=== PATIENT | female | born 1970 | race Caucasian/White ===

== ENCOUNTER → 2019-04-26 | Outpatient (CLI) | payer OTHER ==
--- NOTE | 2019-04-28 10:15 | RAD ---
DATE: 04/26/2019 EXAM: MAMMO JODI SCREENING BILATERAL HISTORY: Routine screening COMPARISON: 03/17/2012, 05/02/2015 mammographic exams This study was interpreted with the benefit of Computerized Aided Detection (CAD). Breast Density: DENSE The breast parenchyma is dense, which could reduce the sensitivity of mammography. Breast parenchyma level density D. FINDINGS: Benign-appearing left axillary lymph node appears very present and partially visualized. No mass or distortion. No suspicious calcification. IMPRESSION: Stable BI-RADS CATEGORY: 1 NEGATIVE RECOMMENDED FOLLOW-UP: 12M 12 MONTH FOLLOW-UP PQRS compliance statement: Patient information was entered into a reminder system with a target due date in one year for the next mammogram. Mammography is a sensitive method for finding small breast cancers, but it does not detect them all and is not a substitute for careful clinical examination. A negative mammogram does not negate a clinically suspicious finding and should not result in delay in biopsying a clinically suspicious abnormality. "Our facility is accredited by the [employer] Mammography Program."
== END | disposition home or self-care (01) ==
LOC: MAMMO 09:40
PROVIDERS: ATTEND Obstetrics & Gynecology
DX: Z12.31 Encounter for screening mammogram for malignant neoplasm of breast (principal)
CPT/HCPCS: 77063; 77067